=== PATIENT | male | born 1980 | race Caucasian/White ===

== ENCOUNTER 2023-12-14 16:32 | Emergency (ER) | payer BC, SELFPAY ==
[2023-12-14 16:36] VITALS: BP 134/82
[2023-12-14 19:35] VITALS: BP 144/74
--- NOTE | 2023-12-14 20:13 | ED.MUSCINJ ---
HPI-Injury
<Tali Bishop NP - Last Filed: 12/14/23 20:22>
General
Chief Complaint: Fall
Source: patient and other (friend)
Exam Limitations: none
Time Seen by Provider: 12/14/23 16:41
Nursing documentation reviewed up to this point in time: agreed with
Travel History
Have you had any contact with someone who has COVID-19?: No
Do you have any symptoms of coronavirus? Fever > 100 degrees, chills, cough, shortness of breath, sore throat, loss of taste or smell, muscle aches, or headache?: No
History of Present Illness-Injury
Is this injury a work related problem?: No
Is pt an associate of [facility]?: No
Initial Injury comments:
Patient to ED for eval s/p fall. According to patient and friend, patient has been drinking, visibly intoxicated. Lost footing and fell. Hit face on pavement. No LOC. Large laceration to left eyebrow, left lateral and lower orbit. Injury
occurred just [employer]. No other injuries noted.
Past History
<Tali Bishop LOG COOKER - Last Filed: 12/14/23 20:22>
Past History
ED Past Medical History: None
Review of Systems
<Tali Bishop LOG COOKER - Last Filed: 12/14/23 20:22>
Review of Systems
Allergies reviewed?: Yes
All Other Systems: ROS reviewed and negative except as documented in HPI and ROS
Constitutional: Reports no symptoms
EENT: Reports no symptoms
Respiratory: Reports no symptoms
Cardiac: Reports no symptoms
ABD/GI: Reports no symptoms
Musculoskeletal: Reports other (swelling and bruising to left orbit)
Skin: Reports other (laceration to left eyebrow, left lateral orbit, left lower orbit.)
Neurological: Reports no symptoms
Psychiatric: Reports no symptoms
Musculoskeletal Injury Exam
<Tali Bishop NP - Last Filed: 12/14/23 20:22>
Musculoskeletal Injury Exam
Left ORbit:
Pain with Movement?: Moderate
Tender to palpation?: Moderate
Soft tissue swelling?: Moderate
External deformity and angulation?: None
Joint effusion?: None
Contusion?: Moderate
Hematoma-local bleeding into tissue?: Moderate
Strain- Sprain- Tear (Connective tissue injury)?: None
Crepitus with movement?: No
Joint instability?: No
Malalignment/deformity?: No
Range of motion: Full
Distal skin color and temperature: normal-warm & good color
Capillary Refill: normal
Normal distal neurovascular exam?: Yes
Skin Exam
<Tali Bishop NP - Last Filed: 12/14/23 20:22>
Laceration
Left Eye brow:
Length in cm: 4.5
Orientation: diagonal
Type of Laceration: simple
Any active bleeding?: low grade venous oozing
Distal skin color and temperature: normal-warm & good color
Normal distal neurovascular exam: Yes
Range of motion: full
Left lateral orbit #1:
Length in cm: 1
Orientation: horizontal
Type of Laceration: simple
Any active bleeding?: low grade venous oozing
Distal skin color and temperature: normal-warm & good color
Normal distal neurovascular exam: Yes
Range of motion: full
Left lateral orbit #2:
Length in cm: 1
Orientation: horizontal
Type of Laceration: simple
Any active bleeding?: no active bleeding
Distal skin color and temperature: normal-warm & good color
Normal distal neurovascular exam: Yes
Range of motion: full
Left lower orbit:
Length in cm: 2.5
Orientation: horizontal
Type of Laceration: simple
Any active bleeding?: no active bleeding
Distal skin color and temperature: normal-warm & good color
Normal distal neurovascular exam: Yes
Range of motion: full
Phy Exam
<Tali Bishop LOG COOKER - Last Filed: 12/14/23 20:22>
General Physical Exam
General Presentation: well appearing
General age: appears stated age
General Skin: warm and dry
General Habitus: normal
General Mental: alert and appears intoxicated
[place] Coma Scale
Eye Opening: Spontaneous
Verbal Response: Oriented
Motor Response: Obeys Commands
GCS Total Score: 15
Musculoskeletal Exam
Musculoskeletal Exam: full ROM and neuro vasc intact
Skin Exam
Skin Exam: normal color, warm/dry and no rash
Psychiatric Exam
Psychiatric Exam: normal mood/affect
<Leon Gonzalez, DO - Last Filed: 12/14/23 23:17>
[place] Coma Scale
GCS Total Score: 15
Injury Course
<Tali Bishop, LOG COOKER - Last Filed: 12/14/23 20:22>
Orders/Labs/Results
Orders:
Orders
12/14/23 16:34
CT Facial Bones W/o Iv Contras Urgent
Comment:
Reason For Exam: Fall, ETOH
CT Head W/o Iv Contrast Urgent
Comment:
Reason For Exam: fall, ETOH
<Leon Gonzalez DO - Last Filed: 12/14/23 23:17>
Orders/Labs/Results
Orders:
Orders
12/14/23 16:34
CT Facial Bones W/o Iv Contras Urgent
Comment:
Reason For Exam: Fall, ETOH
CT Head W/o Iv Contrast Urgent
Comment:
Reason For Exam: fall, ETOH
Procedures
<Tali Bishop NP - Last Filed: 12/14/23 20:22>
Laceration Closure
Left Eye brow:
Status of Wound: clean
Description of Wound Edges: sharp
Preparation: cleaned with saline
Anesthesia: 1% Lidocaine
Revision/Debridement: routine- no revision
Wound exploration: explored to base- no FB
Type of Closure: single layer closure
Skin Closure Material: 6-0 prolene
Left Lateral orbit #1:
Status of Wound: clean
Description of Wound Edges: sharp
Preparation: cleaned with saline and cleaned with Betadine
Anesthesia: 1% Lidocaine
Revision/Debridement: routine- no revision
Wound exploration: explored to base- no FB
Type of Closure: single layer closure
Skin Closure Material: 6-0 prolene
Left lateral orbit #2:
Status of Wound: clean
Description of Wound Edges: sharp
Preparation: cleaned with saline
Anesthesia: 1% Lidocaine
Revision/Debridement: routine- no revision
Wound exploration: explored to base- no FB
Type of Closure: single layer closure
Skin Closure Material: 6-0 prolene
Left lower orbit:
Status of Wound: clean
Description of Wound Edges: sharp
Preparation: cleaned with saline
Anesthesia: 1% Lidocaine
Revision/Debridement: routine- no revision
Wound exploration: explored to base- no FB
Type of Closure: single layer closure
Skin Closure Material: 6-0 prolene
<Tali Bishop NP - Last Filed: 12/14/23 20:22>
*Radiology
Radiology exam reviewed: radiology read reviewed
*Pulse Oximetry
Patient hypoxic: no
*Critical Care Note
Total Time (30-74mins, 75-104mins- exclusive of procedures): Not Applicable
ED Attending Note
<Tali Bishop LOG COOKER - Last Filed: 12/14/23 20:22>
-
Portions of this chart may have been created with voice recognition software.� Occasional wrong word or��sound alike� substitutions may have occurred due to the inherent limitations of voice recognition software.
<Leon Gonzalez DO - Last Filed: 12/14/23 23:17>
ED Attending Note
Patient seen and examined by attending physician: Yes
I performed the substantive portion of visit, reviewed & personally made and approve the management plan that is documented in note by myself or PEGGY.: Yes
ED Attending Note:
I agree with Don's note
Patient suffered a fall causing him to strike his left periorbital area. Multiple lacerations repaired by Tali.
Extraocular movement appears to be intact. There is significant periorbital ecchymosis and swelling.
Eye itself has no evidence of trauma. Pupils round and reactive
Patient somewhat resistant to imaging primary because of the cost. However my suspicion for an orbital fracture is fairly high. I was able to have a fairly long discussion with the patient and convince him of the need for CAT scan.
Discharge Plan
Departure
Patient Disposition: Home (Routine Discharge)
Date of Disposition: 12/14/23
Time of Disposition: 19:24
Patient with high blood pressure during this ER visit?: No
Condition: Good
Covid-19: Not Applicable
Discharge Problem:
Head injury, Facial laceration, Contusion of left orbit
Instructions: Head Injury in Adults (DC), Laceration Repair With Stitches (DC), Using Cold for Pain
Referrals:
NONE,* [Family Provider] -
Activity Restrictions/Additional Instructions:
Sutures can be removed in 5-7 days by your family doctor
Interventions
Interventions:
*Risk Screen - Suicide Last Done: 12/14/23 16:49
*General Assessment Last Done: 12/14/23 16:49
*Neglect/Abuse Screening Last Done: 12/14/23 16:49
ED- Fall Risk Assessment Last Done: 12/14/23 16:49
*ED COVID-19 Vaccine History Last Done: 12/14/23 16:49
*Nursing Disposition Last Done: 12/14/23 19:35
ED-Musculoskeletal Assessment Last Done: 12/14/23 16:49
ED- Neurological Assessment Last Done: 12/14/23 16:49
Discharge Date and Time
Discharge Date/Time: 12/14/23 20:36
== END 2023-12-14 20:36 | disposition home or self-care (01) ==
LOC: EMR 16:32
PROVIDERS: EMERGENCY PHYSICIAN Emergency Medicine
DX: S05.12XA Contusion of eyeball and orbital tissues, left eye, initial encounter (principal); S01.81XA Laceration without foreign body of other part of head, initial encounter; S01.112A Laceration without foreign body of left eyelid and periocular area, initial encounter; W19.XXXA Unspecified fall, initial encounter
CPT/HCPCS: 99284; 12013; 70450; 70486